=== PATIENT | female | born 1985 | race Caucasian/White ===

== ENCOUNTER 2016-12-24 09:02 | Emergency (ER) | payer OTHER ==
[~2016-12-24] VITALS: Ht 160 cm; Wt 67.5 kg
[~2016-12-24 09:02] MED LIST: PERCOCET; TYLENOL; VITAMINS
[2016-12-24 09:03] VITALS: Ht 160 cm; Wt 67.5 kg
[2016-12-24] MEDS ORDERED: ONDANSETRON 4 MG INJ IV STA (09:24)
[2016-12-24] MEDS ORDERED: morphine 4 MG/ML VIAL IV STA (09:24)
[2016-12-24 09:56] LABS: BASOPHILS % 0.5 % (0.0-2.0); EOSINOPHILS # 0.2 10^3/ul (0.0-0.5); EOSINOPHILS % 2.2 % (0.0-7.0); HEMOGLOBIN 13.4 g/dl (12.0-16.0); LYMPHOCYTES # 2.8 10^3/ul (0.8-2.9); LYMPHOCYTES % 33.8 % (15.0-51.0); MEAN CORPUSCULAR HEMOGLOBIN 27.6 pg (29.0-33.0); MEAN CORPUSCULAR HGB CONC 32.7 g/dl (32.0-37.0); MEAN CORPUSCULAR VOLUME 84.4 fl (82.0-101.0); MEAN PLATELET VOLUME 11.1 fl (7.4-10.4); MONOCYTE # 0.5 10^3/ul (0.3-0.9); MONOCYTES % 6.2 % (0.0-11.0); NEUTROPHIL # 4.7 10^3/ul (1.6-7.5); NEUTROPHILS % 56.9 % (39.0-77.0); PLATELET COUNT 311 10^3/UL (140-415); RED BLOOD COUNT 4.86 10^6/ul (4.20-5.40); WHITE BLOOD COUNT 8.2 10^3/ul (4.8-10.8)
[2016-12-24 10:03] LABS: ADD UMIC YES; UR ASCORBIC ACID NEGATIVE (NEGATIVE); UR BILIRUBIN (Dip) NEGATIVE (NEGATIVE); UR BLOOD (Dip) NEGATIVE (NEGATIVE); UR CLARITY CLOUDY (CLEAR); UR COLOR YELLOW (YELLOW); UR GLUCOSE (Dip) NEGATIVE (NEGATIVE); UR KETONES (Dip) NEGATIVE (NEGATIVE); UR LEUKOCYTE ESTERASE (Dip) 2+ Leu/ul (NEGATIVE); UR MUCUS FEW /HPF (NONE SEEN); UR NITRITE (Dip) NEGATIVE (NEGATIVE); UR RBC 2 /HPF (0-5); UR SPECIFIC GRAVITY (Dip) 1.027 (1.003-1.030); UR SQUAMOUS EPITHELIAL CELL MANY /HPF (FEW); UR TOTAL PROTEIN (Dip) NEGATIVE (NEGATIVE); UR UROBILINOGEN (Dip) NEGATIVE (NEGATIVE)
[2016-12-24 10:19] LABS: ALBUMIN 4.4 g/dl (3.3-4.9); ALBUMIN/GLOBULIN RATIO 1.18; BILIRUBIN,INDIRECT 0.1 mg/dl (0-1.1); BILIRUBIN,TOTAL 0.1 mg/dl (0.2-1.3); CALCIUM 9.3 mg/dl (8.4-10.2); CREATININE 0.73 mg/dl (0.44-1.00); POTASSIUM 4.1 mmol/L (3.5-5.1); TOTAL PROTEIN 8.1 g/dl (6.1-8.1)
[2016-12-24] MEDS ORDERED: SOD CHLORIDE 0.9% 100 ML ONE (10:19)
[2016-12-24] MEDS ORDERED: IOHEXOL 300MG/ML 150 ML BTL ONE (10:19)
[2016-12-24] MEDS ORDERED: KETOROLAC 30 MG INJ IV STA (11:03)
--- NOTE | 2016-12-24 11:09 | ERD ---
ER Documentation Chief Complaint Date/Time DATE: 12/24/16 TIME: 11:05 Chief Complaint LOWER ABDOMINAL PAIN X2 DAYS, NAUSEA, WORSE THIS MORNING (JOANN MANN MD) HPI This 31-year-old female presents with lower abdominal pain for last 2 days. She denies any fever chills, vaginal discharge, vomiting. Last menstrual period was approximately 3 weeks ago. She denies . Pain is mostly suprapubic and bilateral pelvic but slightly worse on the right. (JOANN MANN MD) ROS All systems reviewed and are negative except as per history of present illness. (JOANN MANN MD) Medications Home Meds Active Scripts Ibuprofen* (Motrin*) 600 Mg Tab, 600 MG PO Q6, #20 TAB Prov:JOANN MANN MD 12/24/16 Reported Medications Oxycodone Hcl/Acetaminophen (Percocet) 1 Tab Tab, PRN 01/24/11 [Tylenol] No Conflict Check 10/12/10 [Vitamins] No Conflict Check 10/12/10 Allergies Allergies: Coded Allergies: hydromorphone (Verified Allergy, Mild, itching, 12/24/16) niacin (Verified Adverse Reaction, Mild, RASH,ITCHY, 12/24/16) SIDE EFFECT, NOT ALLERGY PMhx/Soc Medical and Surgical Hx: pt denies Medical Hx, pt denies Surgical Hx History of Surgery: No Anesthesia Reaction: No Hx Neurological Disorder: No Hx Respiratory Disorders: No Hx Cardiac Disorders: No Hx Psychiatric Problems: No Hx Miscellaneous Medical Probl: Yes (IBS) Hx Alcohol Use: Yes (Occ) Hx Substance Use: No Hx Tobacco Use: No Smoking Status: Never smoker (JOANN MANN MD) Physical Exam Vitals Vital Signs Date Time Temp Pulse Resp B/P Pulse Ox O2 Delivery O2 Flow Rate FiO2 12/24/16 09:03 98.0 99 20 132/71 98 (JESUS ALEXANDER PA-C) Physical Exam Const: []Alert, [id number]. Head: Atraumatic Eyes: Normal Conjunctiva ENT: Normal External Ears, Nose and Mouth. Neck: Full range of motion..~ No meningismus. Resp: Clear to auscultation bilaterally Cardio: Regular rate and rhythm, no murmurs Abd: Soft, non tender, non distended. Normal bowel sounds. Mild tenderness diffusely pelvic area and suprapubic area. No gross tenderness at McBurney's point with positive tenderness in the right pelvis more than the left. Negative psoas and obturator and negative Rovsing sign. Pelvis exam-with assistance of a tea tree farm worker bimanual exam shows cervical motion tenderness without appreciable adnexal masses or tenderness. Skin: No petechiae or rashes Back: No midline or flank tenderness Ext: No cyanosis, or edema Neur: Awake and alert Psych: Normal Mood and Affect (JOANN MANN MD) Result Diagram: 12/24/16 0936 12/24/16 0936 Results 24 hrs Laboratory Tests Test 12/24/16 09:36 White Blood Count 8.210^3/ul Red Blood Count 4.8610^6/ul Hemoglobin 13.4g/dl Hematocrit 41.0% Mean Corpuscular Volume 84.4fl Mean Corpuscular Hemoglobin 27.6pg Mean Corpuscular Hemoglobin Concent 32.7g/dl Red Cell Distribution Width 14.0% Platelet Count 15007^3/UL Mean Platelet Volume 11.1fl Neutrophils % 56.9% Lymphocytes % 33.8% Monocytes % 6.2% Eosinophils % 2.2% Basophils % 0.5% Nucleated Red Blood Cells % 0.0/100WBC Neutrophils # 4.710^3/ul Lymphocytes # 2.810^3/ul Monocytes # 0.510^3/ul Eosinophils # 0.210^3/ul Basophils # 0.010^3/ul Nucleated Red Blood Cells # 0.010^3/ul Urine Color YELLOW Urine Clarity CLOUDY Urine pH 5.0 Urine Specific Britton 1.027 Urine Ketones NEGATIVEmg/dL Urine Nitrite NEGATIVEmg/dL Urine Bilirubin NEGATIVEmg/dL Urine Urobilinogen NEGATIVEmg/dL Urine Leukocyte Esterase 2+Luna/ul Urine Microscopic RBC 2/HPF Urine Microscopic WBC 4/HPF Urine Squamous Epithelial Cells MANY/HPF Urine Mucus FEW/HPF Urine Hemoglobin NEGATIVEmg/dL Urine Glucose NEGATIVEmg/dL Urine Total Protein NEGATIVEmg/dl Sodium Level 140mmol/L Potassium Level 4.1mmol/L Chloride Level 104mmol/L Carbon Dioxide Level 27mmol/L Anion Gap 13 Blood Urea Nitrogen 13mg/dl Creatinine 0.73mg/dl Glucose Level 96mg/dl Calcium Level 9.3mg/dl Total Bilirubin 0.1mg/dl Direct Bilirubin 0.00mg/dl Indirect Bilirubin 0.1mg/dl Aspartate Amino Transf (AST/SGOT) 27IU/L Alanine Aminotransferase (ALT/SGPT) 64IU/L Alkaline Phosphatase 65IU/L Total Protein 8.1g/dl Albumin 4.4g/dl Globulin 3.70g/dl Albumin/Globulin Ratio 1.18 Lipase 111U/L Current Medications Medications (Trade) Dose Ordered Sig/Naun Route PRN Reason Start Time Stop Time Status Last Admin Dose Admin Morphine Sulfate (morphine) 4 mg ONCE STAT IV 12/24/16 09:24 12/24/16 09:27 DC 12/24/16 09:35 Ondansetron HCl (Zofran Inj) 4 mg ONCE STAT IV 12/24/16 09:24 12/24/16 09:27 DC 12/24/16 09:35 IV Flush 10 ml 10 ml STK-MED ONCE .ROUTE 12/24/16 10:19 12/24/16 10:20 DC Sodium Chloride (NS) 100 ml @ ud STK-MED ONCE .ROUTE 12/24/16 10:19 12/24/16 10:20 DC Iohexol (Omnipaque 300mg/ ml) 150 ml STK-MED ONCE .ROUTE 12/24/16 10:19 12/24/16 10:20 DC Azithromycin (Zithromax) 1,000 mg ONCE ONCE PO 12/24/16 11:30 12/24/16 11:31 DC 12/24/16 11:09 Ketorolac Tromethamine (Toradol) 30 mg ONCE STAT IV 12/24/16 11:03 12/24/16 11:05 DC 12/24/16 11:09 (JESUS ALEXANDER PA-C) Procedures/MDM CBC is normal. CMP is normal. HCG negative. Urine shows slight leukocytes but many epithelial cells. Urine sent for gonorrhea chlamydia. Patient was given Rocephin 500 mg IV and Zithromax 1 g p.o. Patient presents with pelvic pain for 2 days with signs of PID. Pelvic ultrasound pending and signed out to NOEMY ALEXANDER and supervising ER physician for review of ultrasound for further evaluation and management. Location of pain in laboratory studies recurrent suspicion for appendicitis low but patient was recommended for close follow-up as an outpatient. No signs of sepsis or obstruction or ovarian torsion currently. (JOANN MANN MD) Patient transferred to tx for ultrasound evaluation. Patient was stable at transfer. Pelvic ultrasound as read by radiologist shows trace free fluid, otherwise unremarkable pelvic ultrasound. Discharge instructions and medications as reported by Dr. Mann. At this time, patient is stable for discharge and outpatient management with no new complaints during the ER course. Patient was sent home with copy of imaging studies, laboratory studies and ibuprofen. Patient will be discharged home with instructions to recheck for new or worsening symptoms such as fever, nausea, weakness, LOC and to follow up with primary care in the next 1-2 days. Patient was advised to return to the ER for any new or worsening symptoms. Plan was discussed and patient and/or family understands and agrees. Home instructions were given. (JESUS ALEXANDER PA-C) Departure Diagnosis: Primary Impression: Pelvic pain Condition: Stable JOANN MANN MD Dec 24, 2016 11:09 JESUS ALEXANDER PA-C Dec 24, 2016 13:29
[2016-12-24] MEDS ORDERED: IBUP-1542 PO (11:11)
[2016-12-24] MEDS ORDERED: AZITHROMYCIN 250 MG TAB PO ONE (11:30)
--- NOTE | 2016-12-24 13:19 | RADRPT ---
PROCEDURE: US Pelvis. CLINICAL INDICATION: Pelvic pain TECHNIQUE: Multiple sonographic images of the pelvis were obtained utilizing a transabdominal and endovaginal technique. The images were reviewed on a PACS workstation. COMPARISON: None available FINDINGS: Uterus: Normal in size, contour and echogenicity with no evidence for myometrial masses. Size is est imated at 94 by 4.8 x 6.2 cm. Cervix: No abnormalities of significance are seen. Endometrium: Normal in thickness; 5.6 of mm. Right ovary / adnexa: Normal in size estimated at 3.1 x 2.1 x 2.4 cm. No evidence for masses, norm al blood flow on Doppler interrogation. Left ovary/adnexa: Normal in size estimated at 4.7 x 2.9 x 3.6 cm. No evidence for solid masses, no rmal blood flow on Doppler interrogation. Cul-de-sac: Trace free fluid present. RPTAT: HSM IMPRESSION: Trace free fluid. Otherwise, Unremarkable pelvic ultrasound. .Vannessa Acosta MD, Date Time Electronically viewed and signed by .Vannessa Acosta MD, on 12/24/2016 13:19 .M/
[2016-12-24 13:38] VITALS: BP 115/64; PULSE 93; RESP 18; TEMP 98.3
== END 2016-12-24 13:54 | disposition home or self-care (01) ==
LOC: FTE 09:02
DX: R10.2 Pelvic and perineal pain (principal); R11.0 Nausea
CPT/HCPCS: 36415; 76830; 76856; 80053; 81001; 83690; 85025; 87591; 96374; 96375; 99285; J1885; J2270; J2405; Q9967